=== PATIENT | male | born 1960 | race Caucasian/White ===

== ENCOUNTER → 2016-12-18 | Outpatient (CLI) | payer SELFPAY ==
--- NOTE | 2016-12-18 13:15 | REP ---
Left lower extremity Duplex Doppler venous ultrasound: Real time compression and duplex Doppler interrogation of the left lower extremity deep venous system is performed. The left common femoral, superficial femoral and popliteal veins are fully compressible with transducer pressure and demonstrate normal spontaneous and phasic flow, without evidence of deep venous thrombosis. Impression: No evidence of deep venous thrombosis of the left lower extremity femoral popliteal venous system. Signed by Johnathan Lay MD 12/18/2016 01:07 P
== END ==
LOC: M RAD 12:02
PROVIDERS: ATTEND Physician Assistant Medical
DX: M79.605 Pain in left leg (principal)

== ENCOUNTER → 2018-09-11 | Outpatient (REF) | payer MEDICAID ==
[2018-09-11 14:03] LABS: BASO # 0.1 10^3/uL (0.0-0.2); BASO % 0.7 % (0.0-1.0); EOS # 0.1 10^3/uL (0.0-0.50); EOS % 1.7 % (0.0-3.0); HEMATOCRIT 42.8 % (42.0-52.0); HEMOGLOBIN 14.4 g/dl (13.5-17.5); LYMPH # 1.6 10^3/uL (1.5-4.5); LYMPH % 20.2 % (24.0-44.0); MEAN CORPUSCULAR HEMOGLOBIN 31.2 pg (27.0-33.0); MEAN CORPUSCULAR HGB CONC 33.6 g/dl (32.0-36.5); MEAN CORPUSCULAR VOLUME 92.8 fl (80.0-96.0); MONO # 0.7 10^3/uL (0.0-0.8); MONO % 8.9 % (0.0-5.0); NEUTROPHILS # 5.5 10^3/uL (1.8-7.7); NEUTROPHILS % 67.9 % (36.0-66.0); PLATELET COUNT, AUTOMATED 247 10^3/uL (150-450); RED BLOOD COUNT 4.61 10^6/uL (4.30-6.10); WHITE BLOOD COUNT 8.1 10^3/uL (4.0-10.0)
[2018-09-11 14:31] LABS: ALBUMIN 3.6 GM/DL (3.2-5.2); ALT/SGPT 30 U/L (12-78); BILIRUBIN,TOTAL 0.6 MG/DL (0.2-1.0); BLOOD UREA NITROGEN 16 MG/DL (7-18); CALCIUM LEVEL 8.4 MG/DL (8.8-10.2); CARBON DIOXIDE LEVEL 29 MEQ/L (21-32); CHLORIDE LEVEL 106 MEQ/L (98-107); CHOLESTEROL LEVEL 164 MG/DL (<200); CHOLESTEROL RISK RATIO 5.655 (<5); CREATININE FOR GFR 0.79 MG/DL (0.70-1.30); GLOMERULAR FILTRATION RATE > 60.0 (>49); GLUCOSE, FASTING 104 MG/DL (70-100); HDL CHOLESTEROL 29 MG/DL (>40); LDL CHOLESTEROL 102 MG/DL (<100); NON-HDL-C 135 MG/DL; POTASSIUM SERUM 3.7 MEQ/L (3.5-5.1); SODIUM LEVEL 141 MEQ/L (136-145); TOTAL PROTEIN 7.1 GM/DL (6.4-8.2); TRIGLYCERIDES LEVEL 165 MG/DL (<150)
[2018-09-11 14:34] LABS: TOTAL 25(OH) VITAMIN D 28.1 NG/ML (30.0-100.0)
== END ==
LOC: M SFHCSACK 09:37
PROVIDERS: ATTEND Physician Assistant
DX: Z13.21 Encounter for screening for nutritional disorder (principal); I10 Essential (primary) hypertension; E78.2 Mixed hyperlipidemia; Z12.5 Encounter for screening for malignant neoplasm of prostate

== ENCOUNTER → 2018-09-19 | Outpatient (CLI) | payer MEDICAID ==
--- NOTE | 2018-09-19 13:48 | REP ---
Right knee five views: There is advanced tricompartment osteoarthritis. There is no joint effusion. Mineralization is normal. There is no fracture or dislocation. There are no calcifications or foreign bodies. Impression: Advanced tricompartment osteoarthritis. Left knee five views: There is advanced tricompartment osteoarthritis, slightly more advanced on the right. There is no fracture or dislocation. There are no calcifications or foreign bodies. There is no joint effusion. Impression: Advanced tricompartment osteoarthritis. Electronically Signed by Johnathan Carbone MD 09/19/2018 01:41 P
== END ==
LOC: M WUC 12:03
PROVIDERS: ATTEND Physician Assistant
DX: M17.0 Bilateral primary osteoarthritis of knee (principal)

== ENCOUNTER → 2019-03-28 | Outpatient (REF) | payer MEDICAID, OTHER ==
[2019-03-28 14:34] LABS: BASO # 0.1 10^3/uL (0.0-0.2); BASO % 0.7 % (0.0-1.0); EOS # 0.2 10^3/uL (0.0-0.5); HEMATOCRIT 48.8 % (42.0-52.0); HEMOGLOBIN 15.5 g/dl (13.5-17.5); LYMPH # 2.1 10^3/uL (1.5-5.0); LYMPH % 22.9 % (24.0-44.0); MEAN CORPUSCULAR HEMOGLOBIN 30.2 pg (27.0-33.0); MEAN CORPUSCULAR HGB CONC 31.8 g/dl (32.0-36.5); MEAN CORPUSCULAR VOLUME 95.1 fl (80.0-96.0); MONO % 11.2 % (0.0-5.0); NEUTROPHILS # 5.8 10^3/uL (1.5-8.5); NEUTROPHILS % 62.4 % (36.0-66.0); PLATELET COUNT, AUTOMATED 277 10^3/uL (150-450); RED BLOOD COUNT 5.13 10^6/uL (4.30-6.10); WHITE BLOOD COUNT 9.2 10^3/uL (4.0-10.0)
[2019-03-28 14:46] LABS: ALT/SGPT 27 U/L (12-78); BILIRUBIN,TOTAL 0.6 MG/DL (0.2-1.0); BLOOD UREA NITROGEN 21 MG/DL (7-18); CALCIUM LEVEL 9.1 MG/DL (8.8-10.2); CARBON DIOXIDE LEVEL 30 MEQ/L (21-32); CHLORIDE LEVEL 100 MEQ/L (98-107); CHOLESTEROL LEVEL 153 MG/DL (<200); CHOLESTEROL RISK RATIO 5.464 (<5); CREATININE FOR GFR 0.77 MG/DL (0.70-1.30); FREE T4 1.15 NG/DL (0.76-1.46); GLOMERULAR FILTRATION RATE > 60.0 (>49); GLUCOSE, FASTING 91 MG/DL (70-100); HDL CHOLESTEROL 28 MG/DL (>40); LDL CHOLESTEROL 91 MG/DL (<100); NON-HDL-C 125 MG/DL; POTASSIUM SERUM 3.9 MEQ/L (3.5-5.1); SODIUM LEVEL 136 MEQ/L (136-145); TOTAL PROTEIN 7.6 GM/DL (6.4-8.2); TRIGLYCERIDES LEVEL 171 MG/DL (<150)
[2019-03-28 14:48] LABS: TOTAL 25(OH) VITAMIN D 23.6 NG/ML (30.0-100.0)
[2019-03-28 14:51] LABS: HEMOGLOBIN A1c 5.7 %
== END ==
LOC: M SFHCSACK 08:52
PROVIDERS: ATTEND Physician Assistant
DX: I10 Essential (primary) hypertension (principal); R73.09 Other abnormal glucose; F41.8 Other specified anxiety disorders; E78.2 Mixed hyperlipidemia; E55.9 Vitamin D deficiency, unspecified

== ENCOUNTER → 2019-12-30 | Outpatient (REF) | payer OTHER, MEDICAID ==
[2019-12-30 14:18] LABS: BASO # 0.1 10^3/uL (0.0-0.2); BASO % 0.6 % (0.0-1.0); EOS # 0.1 10^3/uL (0.0-0.5); HEMATOCRIT 44.8 % (42.0-52.0); HEMOGLOBIN 14.8 g/dl (13.5-17.5); LYMPH # 1.8 10^3/uL (1.5-5.0); LYMPH % 18.9 % (24.0-44.0); MEAN CORPUSCULAR HEMOGLOBIN 32.1 pg (27.0-33.0); MEAN CORPUSCULAR VOLUME 97.2 fl (80.0-96.0); MONO # 0.9 10^3/uL (0.0-0.8); MONO % 9.6 % (0.0-5.0); NEUTROPHILS # 6.6 10^3/uL (1.5-8.5); NEUTROPHILS % 69.2 % (36.0-66.0); PLATELET COUNT, AUTOMATED 298 10^3/uL (150-450); RED BLOOD COUNT 4.61 10^6/uL (4.30-6.10); WHITE BLOOD COUNT 9.6 10^3/uL (4.0-10.0)
[2019-12-30 14:56] LABS: ALBUMIN 4.1 GM/DL (3.2-5.2); ALT/SGPT 24 U/L (12-78); BILIRUBIN,TOTAL 0.9 MG/DL (0.2-1.0); BLOOD UREA NITROGEN 15 MG/DL (7-18); C REACTIVE PROTEIN QUANTITATIV 2.06 MG/DL (0.00-0.30); CALCIUM LEVEL 9.4 MG/DL (8.8-10.2); CARBON DIOXIDE LEVEL 29 MEQ/L (21-32); CHLORIDE LEVEL 99 MEQ/L (98-107); CHOLESTEROL LEVEL 153 MG/DL (<200); CHOLESTEROL RISK RATIO 4.636 (<5); CREATININE FOR GFR 0.93 MG/DL (0.70-1.30); FREE T4 1.16 NG/DL (0.76-1.46); GLOMERULAR FILTRATION RATE > 60.0 (>49); GLUCOSE, FASTING 88 MG/DL (70-100); HDL CHOLESTEROL 33 MG/DL (>40); LDL CHOLESTEROL 89 MG/DL (<100); NON-HDL-C 120 MG/DL; POTASSIUM SERUM 3.6 MEQ/L (3.5-5.1); SODIUM LEVEL 136 MEQ/L (136-145); TOTAL 25(OH) VITAMIN D 66.8 NG/ML (30.0-100.0); TOTAL PROTEIN 7.7 GM/DL (6.4-8.2); TRIGLYCERIDES LEVEL 153 MG/DL (<150)
[2019-12-30 15:10] LABS: HEMOGLOBIN A1c 5.6 %
== END ==
LOC: M SFHCPLAZ 10:54
PROVIDERS: ATTEND Nurse Practitioner Family
DX: M17.12 Unilateral primary osteoarthritis, left knee (principal); I10 Essential (primary) hypertension; E78.2 Mixed hyperlipidemia; R73.01 Impaired fasting glucose; E55.9 Vitamin D deficiency, unspecified

== ENCOUNTER → 2020-07-30 | Outpatient (REF) | payer MEDICAID, MEDICARE, OTHER ==
[2020-07-30 15:46] LABS: ALBUMIN 3.9 GM/DL (3.2-5.2); ALT/SGPT 18 U/L (12-78); BILIRUBIN,TOTAL 0.6 MG/DL (0.2-1.0); BLOOD UREA NITROGEN 26 MG/DL (7-18); CALCIUM LEVEL 9.8 MG/DL (8.8-10.2); CARBON DIOXIDE LEVEL 28 MEQ/L (21-32); CHLORIDE LEVEL 101 MEQ/L (98-107); CHOLESTEROL LEVEL 152 MG/DL (<200); CREATININE FOR GFR 0.74 MG/DL (0.70-1.30); GLOMERULAR FILTRATION RATE > 60.0 (>49); GLUCOSE, FASTING 107 MG/DL (70-100); HDL CHOLESTEROL 32 MG/DL (>40); LDL CHOLESTEROL 81 MG/DL (<100); NON-HDL-C 120 MG/DL; POTASSIUM SERUM 3.9 MEQ/L (3.5-5.1); SODIUM LEVEL 136 MEQ/L (136-145); TOTAL PROTEIN 7.9 GM/DL (6.4-8.2); TRIGLYCERIDES LEVEL 197 MG/DL (<150)
[2020-07-30 15:49] LABS: TOTAL 25(OH) VITAMIN D 48.3 NG/ML (30.0-100.0)
[2020-07-30 15:52] LABS: HEMOGLOBIN A1c 5.5 %
== END ==
LOC: M SFHCPLAZ 11:17
PROVIDERS: ATTEND Nurse Practitioner Family
DX: R73.01 Impaired fasting glucose (principal); I10 Essential (primary) hypertension; E78.2 Mixed hyperlipidemia; E55.9 Vitamin D deficiency, unspecified; Z79.899 Other long term (current) drug therapy
CPT/HCPCS: 36415; 80053; 80061; 82306; 83036; 83735; G0463

== ENCOUNTER → 2020-11-02 | Outpatient (CLI) | payer OTHER ==
--- NOTE | 2020-11-03 04:50 | REP ---
INDICATION: UNILATERAL PRIMARY OSTEOARTHRITIS, LEFT KNEE COMPARISON: None. TECHNIQUE: AP, lateral, bilateral oblique and sunrise views. FINDINGS: Advanced tricompartmental osteoarthritic degenerative changes include periarticular sclerosis, joint space narrowing, cortical irregularities and significant osteophytosis as well as elements of chondrocalcinosis and suspected intra-articular loose bodies. No acute fracture or dislocation. No effusion. IMPRESSION: Advanced tricompartmental osteoarthritic degenerative changes. <Electronically signed by Itz Banks > 11/03/20 0443
== END ==
LOC: M PLAIMG 14:25
PROVIDERS: ATTEND Nurse Practitioner Family
DX: M17.12 Unilateral primary osteoarthritis, left knee (principal)
CPT/HCPCS: 73564; G0463

== ENCOUNTER → 2021-07-19 | Outpatient (CLI) | payer MEDICARE, OTHER ==
[2021-07-19 10:48] LABS: ALT/SGPT 23 U/L (12-78); BILIRUBIN,TOTAL 0.5 MG/DL (0.2-1.0); BLOOD UREA NITROGEN 17 MG/DL (7-18); CALCIUM LEVEL 9.3 MG/DL (8.8-10.2); CARBON DIOXIDE LEVEL 28 MEQ/L (21-32); CHLORIDE LEVEL 107 MEQ/L (98-107); CHOLESTEROL LEVEL 159 MG/DL (<200); CREATININE FOR GFR 0.64 MG/DL (0.70-1.30); GLOMERULAR FILTRATION RATE > 60.0 (>49); GLUCOSE, FASTING 89 MG/DL (70-100); SODIUM LEVEL 142 MEQ/L (136-145); TRIGLYCERIDES LEVEL 151 MG/DL (<150)
[2021-07-19 10:49] LABS: ALBUMIN 3.7 GM/DL (3.2-5.2); CHOLESTEROL RISK RATIO 4.184 (<5); HDL CHOLESTEROL 38 MG/DL (>40); LDL CHOLESTEROL 91 MG/DL (<100); NON-HDL-C 121 MG/DL; TOTAL PROTEIN 7.4 GM/DL (6.4-8.2)
[2021-07-19 10:50] LABS: HEMOGLOBIN A1c 5.3 %
[2021-07-19 10:58] LABS: BASO # 0.1 10^3/uL (0.0-0.2); BASO % 0.6 % (0.0-1.0); EOS # 0.1 10^3/uL (0.0-0.5); EOS % 1.4 % (0.0-3.0); HEMATOCRIT 40.9 % (42.0-52.0); HEMOGLOBIN 13.6 g/dl (13.5-17.5); LYMPH # 1.7 10^3/uL (1.5-5.0); LYMPH % 19.8 % (24.0-44.0); MEAN CORPUSCULAR HEMOGLOBIN 36.3 pg (27.0-33.0); MEAN CORPUSCULAR HGB CONC 33.3 g/dl (32.0-36.5); MEAN CORPUSCULAR VOLUME 109.1 fl (80.0-96.0); MONO # 0.9 10^3/uL (0.0-0.8); MONO % 10.7 % (2.0-8.0); NEUTROPHILS # 5.7 10^3/uL (1.5-8.5); NEUTROPHILS % 66.8 % (36.0-66.0); PLATELET COUNT, AUTOMATED 289 10^3/uL (150-450); RED BLOOD COUNT 3.75 10^6/uL (4.30-6.10); TOTAL 25(OH) VITAMIN D 52.4 NG/ML (30.0-100.0); WHITE BLOOD COUNT 8.5 10^3/uL (4.0-10.0)
== END ==
LOC: M PLALAB 08:10
PROVIDERS: ATTEND Nurse Practitioner Family
DX: I10 Essential (primary) hypertension (principal); E78.2 Mixed hyperlipidemia; E55.9 Vitamin D deficiency, unspecified; R73.01 Impaired fasting glucose; Z79.899 Other long term (current) drug therapy

== ENCOUNTER 2022-01-08 04:16 | Emergency (ER) | payer MEDICARE, OTHER ==
[~2022-01-08] VITALS: Ht 177.8 cm; Wt 133.2 kg
[2022-01-08 04:16] VITALS: BP 160/77
== END 2022-01-08 06:02 | disposition left against medical advice (07) ==
LOC: M ED 04:16
DX: Z53.21 Procedure and treatment not carried out due to patient leaving prior to being seen by health care provider (principal)

== ENCOUNTER → 2022-07-12 | Outpatient (CLI) | payer MEDICARE, OTHER ==
[2022-07-12 14:20] LABS: BASO # 0.1 10^3/uL (0.0-0.2); BASO % 0.8 % (0.0-1.0); EOS # 0.2 10^3/uL (0.0-0.5); EOS % 2.5 % (0.0-3.0); HEMATOCRIT 42.2 % (42.0-52.0); LYMPH # 1.9 10^3/uL (1.5-5.0); LYMPH % 26.7 % (24.0-44.0); MEAN CORPUSCULAR HEMOGLOBIN 36.9 pg (27.0-33.0); MEAN CORPUSCULAR HGB CONC 33.2 g/dl (32.0-36.5); MEAN CORPUSCULAR VOLUME 111.3 fl (80.0-96.0); MONO # 0.6 10^3/uL (0.0-0.8); MONO % 8.6 % (2.0-8.0); NEUTROPHILS # 4.3 10^3/uL (1.5-8.5); NEUTROPHILS % 60.7 % (36.0-66.0); PLATELET COUNT, AUTOMATED 302 10^3/uL (150-450); RED BLOOD COUNT 3.79 10^6/uL (4.30-6.10); WHITE BLOOD COUNT 7.1 10^3/uL (4.0-10.0)
[2022-07-12 14:24] LABS: TOTAL 25(OH) VITAMIN D 34.3 NG/ML (20.0-100.0)
[2022-07-12 14:30] LABS: ALBUMIN 3.5 G/DL (3.2-5.2); ALKALINE PHOSPHATASE 56 U/L (46-116); ALT/SGPT 18 U/L (7.0-40); AST/SGOT 15 U/L (<34); BILIRUBIN,TOTAL 0.4 MG/DL (0.3-1.2); BLOOD UREA NITROGEN 19 MG/DL (9-23); CARBON DIOXIDE LEVEL 21 MMOL/L (20-31); CHLORIDE LEVEL 105 MMOL/L (98-107); CHOLESTEROL LEVEL 132 MG/DL (<200); CHOLESTEROL RISK RATIO 4.06 (<5); CREATININE FOR GFR 0.74 MG/DL (0.70-1.30); GLOMERULAR FILTRATION RATE > 60.0 (>49); GLUCOSE, FASTING 97 MG/DL (74-106); HDL CHOLESTEROL 32.5 MG/DL (>40); LDL CHOLESTEROL 64.7 MG/DL (<100); NON-HDL-C 99.5 MG/DL; POTASSIUM SERUM 4.5 MMOL/L (3.5-5.1); SODIUM LEVEL 137 MMOL/L (136-145); TOTAL PROTEIN 7.1 G/DL (5.7-8.2); TRIGLYCERIDES LEVEL 174 MG/DL (<150)
[2022-07-12 14:40] LABS: HEMOGLOBIN A1c 5.3 % (4.0-6.0)
== END ==
LOC: M PLALAB 09:55
PROVIDERS: ATTEND Nurse Practitioner Family
DX: E55.9 Vitamin D deficiency, unspecified (principal); I10 Essential (primary) hypertension; E78.5 Hyperlipidemia, unspecified; R73.01 Impaired fasting glucose; Z79.899 Other long term (current) drug therapy

== ENCOUNTER 2022-08-04 04:06 | Emergency (ER) | payer MEDICARE, OTHER ==
[2022-08-04 04:07] VITALS: BP 133/76
== END 2022-08-04 04:15 | disposition left against medical advice (07) ==
LOC: M ED 04:06
DX: Z53.21 Procedure and treatment not carried out due to patient leaving prior to being seen by health care provider (principal)